=== PATIENT | male | born 1940 | race Two or more races ===

== ENCOUNTER 2021-05-03 17:26 | Inpatient (IN) | payer MEDICARE, OTHER ==
[~2021-05-03] VITALS: Ht 182.9 cm; Wt 72.6 kg
[2021-05-03 19:15] VITALS: BP 118/70
[2021-05-03 20:00] VITALS: BP 154/78
[2021-05-03 20:17] VITALS: BP 154/78
[2021-05-03] MEDS ORDERED: BLOOD SUGAR DIAGNOSTIC 1 EACH STRIP IN ONE (20:30)
[2021-05-03] MEDS ORDERED: LORAZEPAM 0.5 MG TABLET PO PRN (20:30)
[2021-05-03] MEDS ORDERED: MAG HYDROX/AL HYDROX/SIMETH 30 ML UDC PO PRN (20:30)
--- NOTE | 2021-05-03 20:45 | NUR ---
RN NOTE PATIENT'S SON ESME WAS AT BED SIDE UPON ADMISSION & IS AWARE ABOUT PATIENT'S ADMISSION AT GPS UNIT.
[2021-05-03] MEDS ORDERED: PREG50CA PO (21:09)
[2021-05-03] MEDS ORDERED: FAMO20TA8 MT (21:09)
[2021-05-03] MEDS ORDERED: ICOS1CAP PO (21:09)
[2021-05-03] MEDS ORDERED: CALC60CR4 TP (21:09)
[2021-05-03] MEDS ORDERED: POLY17PO4 PO ×2 (21:09)
[2021-05-03] MEDS ORDERED: OXYC5TAB3 MT (21:09)
[2021-05-03] MEDS ORDERED: ESOM20CA PO (21:09)
[2021-05-03] MEDS ORDERED: TRAZ150T75 MT (21:09)
[2021-05-03] MEDS ORDERED: METH4TAB16 MT (21:18)
[2021-05-03] MEDS: TEMAZEPAM 7.5 MG CAPSULE PO PRN (22:43)
--- NOTE | 2021-05-03 22:48 | NUR ---
RN NOTE: INSOMNIA PATIENT VERBALIZED SLEEPLESSNESS & REQUESTED TO TAKE SLEEPING MEDICINE. PRN RESTORIL 7.5 MG 1 CAP PO ADMINISTERED. WILL CONTINUE TO MONITOR.
--- NOTE | 2021-05-04 00:20 | NUR ---
GPS BEARING RING ASSEMBLER NOTE RECEIVED 80Y/O MALE PATIENT FROM [facility]. PATIENT ADMITTED ON A 5150 HOLD FOR DTS/DTO. PER 5150 HOLD, PATIENT HIT HIS WHEN SHE ATTEMPTED TO GIVE HIM HIS MEDICATION. PATIENT TOOK 20 PILLS OF OXYCODONE LAST NIGHT AND HAS BEEN MAKING SUICIDAL COMMENTS," I AM NOT HAPPY, I DON'T WANT TO LIVE." PATIENT IS A DANGER TO HIMSELF & OTHERS. UPON FACE TO FACE ASSESSMENT, PATIENT IS A & O X 2-3, FORGETFUL, DEPRESSED, FLAT AFFECT, COOPERATIVE, DENIES SI/HI AT THIS TIME, REDIRECTABLE. NO S/S OF PAIN. NO S/S OF APPARENT DISTRESS NOTED. AMBULATORY, UNSTEADY AT TIMES. PT EVAL ORDERED. CONTINENT. PATIENT REFUSED TO SIGNS ANY PAPER WORK DUE TO CURRENT MENTAL STATUS. PATIENT ADVISED OF HIS HOLD AND RIGHTS BOOKLET GIVEN. PATIENT IS UNDER THE PSYCHIATRIC CARE OF DR. OCAMPO AND THE MEDICAL CARE OF DR. ROMERO. PATIENT BELONGINGS WERE INVENTORIED AND CHECKED FOR CONTRABAND BY AM SHIFT. SKIN ASSESSMENT DONE. PATIENT ORIENTATED TO ROOM, FLOOR, AND STAFF. PATIENT BED SIDE RAILS ARE UP X 2 FOR SAFETY. PATIENT REFUSED COVID 19 VACCINE. BED IS LOW/LOCKED. BED ALARM IS ON. I WILL CONTINUE TO MONITOR THIS PATIENT Q 15 MIN & PRN WITH THE HELP OF STAFF TO MAINTAIN SAFETY.
--- NOTE | 2021-05-04 01:49 | NUR ---
RN NOTE PATIENT SEEN BY DR. ROMERO ON GPS FLOOR & PER MD, PATIENT'S MEDICATIONS WILL BE RECONCILED.
[2021-05-04] MEDS ORDERED: DEXTROSE 50%-WATER 50 ML DISP.SYRIN IV PRN (02:30)
[2021-05-04] MEDS ORDERED: POLYETHYLENE GLYCOL 3350 17 GM POWD.PACK PO PRN (02:30)
[2021-05-04] MEDS ORDERED: *INSULIN REGULAR(HUMULIN R)HUM 100 UNIT/ML VIAL SQ PRN (02:30)
[2021-05-04] MEDS ORDERED: ACETAMINOPHEN 325 MG TABLET PO PRN (02:30)
--- NOTE | 2021-05-04 03:30 | NUR ---
RN NOTE PATIENT SEEN BY DR. ROMERO & MED RECON DONE. Addendum: 05/04/21 at 0408 by ZULEIMA DALTON RN NOTIFIED DR. ROMERO ABOUT PATIENT'S BACK SURGERY RECENTLY & DRESSING ON THE BACK. PATIENT REFUSED TO REMOVE BACK DRESSING. PER DR. ROMERO, ORDER WOUND CARE CONSULT. ORDER NOTED & CARRIED OUT.
--- NOTE | 2021-05-04 06:55 | NUR ---
RN NOTE PATIENT SLEPT WELL AT NIGHT. MRSA SPECIMEN COLLECTED & SENT TO LAB. NO ACUTE CHANGES NOTED. PATIENT IS CALM, COOPERATIVE & RELAXED AT THIS TIME. WILL ENDORSE TO AM RN FOR CONTINUITY OF CARE.
[2021-05-04 07:21] LABS: BASOPHILS % (AUTO) 0.3 % (0.0-2.0); EOSINOPHILS % (AUTO) 1.4 % (0.0-6.0); HEMATOCRIT 37 % (39-51); HEMOGLOBIN 12.6 g/dL (13.5-17.5); LYMPHOCYTES # (AUTO) 2.2 K/uL (0.8-4.8); LYMPHOCYTES % (AUTO) 22.5 % (20.0-44.0); MEAN CORPUSCULAR HGB CONC 34 g/dl (31.0-36.0); MEAN CORPUSCULAR VOLUME 85 fL (80-96); MONOCYTES # (AUTO) 1.2 K/uL (0.1-1.30); MONOCYTES % (AUTO) 11.9 % (2.0-12.0); NEUTROPHILS # (AUTO) 6.3 K/uL (1.8-8.9); NEUTROPHILS % (AUTO) 63.9 % (43.0-81.0); PLATELET COUNT (AUTO) 349 K/uL (150-450); RED BLOOD CELL COUNT(AUTO) 4.34 MIL/uL (4.5-6.0); WHITE BLOOD COUNT (AUTO) 9.8 K/uL (4.3-11.0)
[2021-05-04] MEDS: BLOOD SUGAR DIAGNOSTIC 1 EACH STRIP VI SCH ×4 (07:30→21:17)
[2021-05-04 08:00] VITALS: BP 152/94
[2021-05-04 08:11] LABS: CHOLESTEROL 262 mg/dL (<200); HDL CHOLESTEROL 51 mg/dL (40-60); LDL 179 mg/dL (0-99); TRIGLYCERIDES 198 mg/dL (30-150)
[2021-05-04 08:17] LABS: BILIRUBIN,TOTAL 0.7 mg/dL (0.2-1.0); CALCIUM, SERUM 8.9 mg/dL (8.5-10.1); CREATININE 0.7 mg/dL (0.6-1.3); POTASSIUM 3.9 mmol/L (3.5-5.1); TOTAL PROTEIN, SERUM 6.9 g/dL (6.4-8.2)
[2021-05-04] MEDS: PREGABALIN 25 MG CAPSULE PO SCH ×3 (08:25→16:42)
[2021-05-04] MEDS: FAMOTIDINE (20 MG) 20 MG TABLET PO SCH ×2 (08:25→16:42)
[2021-05-04 16:00] VITALS: BP 131/72
[2021-05-04 20:08] VITALS: BP 143/80
--- NOTE | 2021-05-04 21:00 | NUR ---
GPS-RN NOTES: PATIENT REFUSED ACCU CHECK FOR TONIGHT. PATIENT STATED "I AM NOT DIABETIC" WILL CONTINUE TO MONITOR.
[2021-05-04] MEDS: ESCITALOPRAM OXALATE (10 MG) 10 MG TABLET PO SCH (21:16)
[2021-05-04] MEDS: TEMAZEPAM 7.5 MG CAPSULE PO PRN (23:10)
--- NOTE | 2021-05-04 23:10 | NUR ---
GPS-RN NOTES: INSOMNIA PATIENT C/O INABILITY TO SLEEP. PRN RESTORIL 7.5MG PO GIVEN ORDERED. WILL CONTINUE TO MONITOR.
[2021-05-05] MEDS: ACETAMINOPHEN 325 MG TABLET PO PRN ×2 (00:45→08:34)
--- NOTE | 2021-05-05 00:45 | NUR ---
GPS-RN NOTES: LOWER BACK PAIN PATIENT C/O LOWER BACK PAIN 11/20. PRN TYLENOL 650MG PO GIVEN ORDERED PER PT'S REQUEST. WILL CONTINUE TO REASSESS.
[2021-05-05] MEDS: BLOOD SUGAR DIAGNOSTIC 1 EACH STRIP VI SCH ×4 (07:43→22:00)
[2021-05-05] MEDS: INSULIN REGULAR, HUMAN 100 UNIT/ML 3 ML VIAL SQ PRN (07:48)
[2021-05-05 08:00] VITALS: BP 145/60
[2021-05-05] MEDS: PREGABALIN 25 MG CAPSULE PO SCH ×3 (08:34→16:21)
[2021-05-05] MEDS: FAMOTIDINE (20 MG) 20 MG TABLET PO SCH ×2 (08:34→16:21)
--- NOTE | 2021-05-05 08:34 | NUR ---
GPS-RN NOTES: LOWER BACK PAIN PATIENT C/O LOWER BACK PAIN 11/20. PRN TYLENOL 650MG PO GIVEN ORDERED PER PT'S REQUEST. WILL CONTINUE TO REASSESS.
--- NOTE | 2021-05-05 14:30 | NUR ---
D/C Plan: SW received call from pt.'s son, Arturo [phone] stating that he would liek to pt. to be discharged to [facility] [[address] [place] [address]; ] when pt. is ready for D/C. SW will continue to collaborate with psychiatrist to ensure safe & proper D/C planning.
--- NOTE | 2021-05-05 14:35 | NUR ---
Point of Contact: The pt.'s son, Arturo Yusuf [phone] is the pt.'s responsible green party and ill be involved in pt.'s care. VICTOR HUGO spoke to Arturo over the phone to gather collateral information.
[2021-05-05 20:00] VITALS: BP 140/53
[2021-05-05] MEDS: ESCITALOPRAM OXALATE (10 MG) 10 MG TABLET PO SCH (21:27)
--- NOTE | 2021-05-05 22:35 | NUR ---
GPS-RN NOTES: PATIENT REFUSED ACCU CHECK FOR TONIGHT. DESPITE OF EXPLANATION THE RISKS AND BENEFITS. PATIENT CONTINUED TO REFUSE. WILL CONTINUE TO MONITOR.
--- NOTE | 2021-05-06 07:21 | NUR ---
GPS-RN NOTES: PATIENT BLOOD SUGAR WAS 134MG/DL. PATIENT REFUSED REGULAR INSULIN 2 UNITS COVERAGE. DESPITE OF EXPLANATION THE RISKS AND BENEFITS. PATIENT CONTINUED TO REFUSE AND PT. STATED "MY BLOOD SUGAR IS NORMAL I DON'T NEED INSULIN". WILL CONTINUE TO MONITOR.
[2021-05-06] MEDS: BLOOD SUGAR DIAGNOSTIC 1 EACH STRIP VI SCH ×4 (07:35→21:54)
[2021-05-06 08:00] VITALS: BP 118/62
[2021-05-06] MEDS: PREGABALIN 25 MG CAPSULE PO SCH ×3 (08:02→16:01)
[2021-05-06] MEDS: FAMOTIDINE (20 MG) 20 MG TABLET PO SCH ×2 (08:02→16:01)
--- NOTE | 2021-05-06 09:40 | NUR ---
SNF Referral: VICTOR HUGO faxed clinicals to [facility], [place] FAX: [phone] tel: [phone]
--- NOTE | 2021-05-06 11:00 | NUR ---
RN NOTE: UA SENT TO LAB
--- NOTE | 2021-05-06 11:22 | NUR ---
WOUND CARE CONSULT: PT SEEN FOR "BACK BLISTER/LAMINECTOMY SITE". PT NOTED TO HAVE SURGICAL DRESSING TO LOWER BACK WHICH IS DRY AND INTACT WITH SOME AREAS OF SKIN DISCOLORATION AND RAISED LESIONS IN CLUSTERS TO RT BUTTOCK, PRESENT ON ADMISSION. DEFER TO PMD FOR LESIONS. NO DRAINAGE NOTED. RECOMMEND SURGICAL FOLLOW UP FOR SURGICAL SITE. PT IS AMBULATORY AND CONTINENT WITH CURRENT LUKAS SCORE OF 19. Addendum: 05/06/21 at 1124 by CAROL CORREIA WNDNU Amended: Links added.
[2021-05-06 12:48] LABS: BILIRUBIN,URINE NEGATIVE (NEGATIVE); COLOR,URINE DARK YELLOW (YELLOW); LEUKOCYTE ESTERASE ,URINE NEGATIVE (NEGATIVE); NITRITE, URINE NEGATIVE (NEGATIVE); PROTEIN,URINE NEGATIVE (NEGATIVE); UGLUCOSE NEGATIVE (NEGATIVE); UROBILINOGEN,URINE 0.2 EU/dL (0.2)
--- NOTE | 2021-05-06 15:50 | NUR ---
[facility] Follow up : VICTOR HUGO received call from CM at [facility] FAX: [phone] tel: [phone] requesting dditional progress notes from MD and from PT. VICTOR HUGO faxed stated notes. Per CM, they will require rapid test completed within last 14 hours prior to D/C. NOTED.
[2021-05-06 16:00] VITALS: BP 123/69
[2021-05-06 20:00] VITALS: BP 127/70
[2021-05-06 20:37] VITALS: BP 122/70
[2021-05-06] MEDS: ESCITALOPRAM OXALATE (10 MG) 10 MG TABLET PO SCH (21:06)
[2021-05-06] MEDS: TEMAZEPAM 7.5 MG CAPSULE PO PRN (21:53)
--- NOTE | 2021-05-06 21:53 | NUR ---
GPS-RN NOTES: INSOMNIA PATIENT C/O INABILITY TO SLEEP. PRN RESTORIL 7.5MG PO GIVEN ORDERED. WILL CONTINUE TO MONITOR.
--- NOTE | 2021-05-06 21:54 | NUR ---
RN NOTE PATIENT'S BLOOD SUGAR LEVEL IS 109 MG/DL, NO SSI COVERAGE NEEDED AT THIS TIME.
[2021-05-07] MEDS: BLOOD SUGAR DIAGNOSTIC 1 EACH STRIP VI SCH ×4 (07:52→22:00)
--- NOTE | 2021-05-07 07:52 | NUR ---
RN NOTE: INSULIN REFUSAL PT 0730 BLOOD SUGAR 140. PT REFUSED INSULIN COVERAGE. NO S/SX OF HYPERGLYCEMIA NOTED. EDUCATED PT RE IMPORTANCE OF STABLE BLOOD SUGAR. PT CONT'D TO REFUSE X 3.
[2021-05-07 08:00] VITALS: BP 137/70
[2021-05-07] MEDS: FAMOTIDINE (20 MG) 20 MG TABLET PO SCH ×2 (08:23→16:21)
[2021-05-07] MEDS: PREGABALIN 25 MG CAPSULE PO SCH ×3 (08:23→16:21)
--- NOTE | 2021-05-07 09:30 | NUR ---
RN NOTE: PAIN PT C/O PAIN AFTER LYRICA ADMINISTRATION. MEDICATED WITH TYLENOL PO PRN.
[2021-05-07] MEDS: ACETAMINOPHEN 325 MG TABLET PO PRN ×2 (09:34→15:49)
--- NOTE | 2021-05-07 09:43 | NUR ---
SS Note: SW notified by [facility] FAX: [phone] tel: [phone] admission's departemtn that they cannot accept this pt. s they feel the pt. is not appropriate for their facility. SW will work with family and refer pt. for alternative placement.
--- NOTE | 2021-05-07 10:15 | NUR ---
D/C Planning w/ Family: VICTOR HUGO called & informed The pt.'s son, Arturo Yusuf [phone] that after reviewing the Physical Therapy notes [facility] notified this SW that the pt. does not have any skilled needs and they cannot accept this pt. Arturo disagreed and stated, "I think your physical therapist does not know what he is doing" and requested for PT re-evaluation to be completed when Arturo is present. VICTOR HUGO called Physical Therapist's office and notified Les of possible re-evaluation. Les expressed understanding. VICTOR HUGO discussed SNF placement for lower level of care and Arturo hesitantly agreed. VICTOR HUGO will refer pt. for appropriate placement and continue to collaborate with psychiatrist for D/C Planning.
--- NOTE | 2021-05-07 10:37 | NUR ---
SNF Referral : VICTOR HUGO faxed clinicals to [facility] TEL: [phone] FAX: [phone]
--- NOTE | 2021-05-07 11:30 | NUR ---
RN NOTE: CONSTIPATION PT C/O CONSTIPATION MEDICATED WITH MILK OF MAGNESIA PO PRN.
[2021-05-07] MEDS: MAGNESIUM HYDROXIDE 30 ML UDC PO PRN (11:34)
--- NOTE | 2021-05-07 15:53 | NUR ---
RN NOTE: PAIN PT C/O 12/21 BACK PAIN. MEDICATED WITH TYLENOL 650MG PO PRN.
[2021-05-07 16:00] VITALS: BP 139/66
--- NOTE | 2021-05-07 17:54 | NUR ---
RN NOTE: CONSTIPATION PT C/O CONT'D CONSTIPATION. MIRALAX ADMINISTERED PO PRN.
[2021-05-07 20:02] VITALS: BP 140/98
[2021-05-07] MEDS: ESCITALOPRAM OXALATE (10 MG) 10 MG TABLET PO SCH (21:59)
[2021-05-07] MEDS: TEMAZEPAM 7.5 MG CAPSULE PO PRN (22:36)
--- NOTE | 2021-05-07 22:37 | NUR ---
GPS RN NOTES: RESTORIL 75MG GIVEN PO PER PATIENT REQUEST.
[2021-05-08] MEDS: ACETAMINOPHEN 325 MG TABLET PO PRN ×2 (01:34→15:43)
[2021-05-08] MEDS: BLOOD SUGAR DIAGNOSTIC 1 EACH STRIP VI SCH ×4 (07:39→22:47)
[2021-05-08 08:00] VITALS: BP 118/62
[2021-05-08] MEDS: PREGABALIN 25 MG CAPSULE PO SCH ×3 (08:25→16:41)
[2021-05-08] MEDS: FAMOTIDINE (20 MG) 20 MG TABLET PO SCH ×2 (08:25→16:41)
[2021-05-08] MEDS: MAGNESIUM HYDROXIDE 30 ML UDC PO PRN (09:53)
--- NOTE | 2021-05-08 13:05 | NUR ---
Probable cause hearing: Pt.'s 5250 hold was upheld on the grounds of [facility] Disabled & DTS.
[2021-05-08 16:00] VITALS: BP 143/74
--- NOTE | 2021-05-08 19:46 | NUR ---
RNOPENING NOTES: RECEIVED PATIENT AWAKE, PLACED IN BED COMFORTABLY, BED IN LOW POSITION, CALL LIGHTS WITHIN REACH, NO COMPLAIN OF PAIN AND DISCOMFORT AT THIS TIME, KPET CLEAN AND DRY, NO CHANGESIN BEHAVIOR OBSERVED, WILL CONTINUE TO MONITOR,.
[2021-05-08 20:39] VITALS: BP 117/75
[2021-05-08] MEDS: TRAZODONE 50 MG TABLET PO SCH (21:47)
[2021-05-08] MEDS: ESCITALOPRAM OXALATE (10 MG) 10 MG TABLET PO SCH (21:47)
--- NOTE | 2021-05-08 22:48 | NUR ---
RN NOTES: HS BS-112 NO INSULIN GIVEN
[2021-05-08] MEDS: TEMAZEPAM 7.5 MG CAPSULE PO PRN (23:09)
[2021-05-09] MEDS: ACETAMINOPHEN 325 MG TABLET PO PRN ×3 (02:05→17:59)
[2021-05-09] MEDS: BLOOD SUGAR DIAGNOSTIC 1 EACH STRIP VI SCH ×4 (06:49→21:54)
[2021-05-09] MEDS: INSULIN REGULAR, HUMAN 100 UNIT/ML 3 ML VIAL SQ PRN (06:56)
[2021-05-09 08:00] VITALS: BP 134/67
[2021-05-09] MEDS: PREGABALIN 25 MG CAPSULE PO SCH ×3 (08:43→16:07)
[2021-05-09] MEDS: FAMOTIDINE (20 MG) 20 MG TABLET PO SCH ×2 (08:44→16:07)
[2021-05-09 16:00] VITALS: BP 141/69
--- NOTE | 2021-05-09 17:13 | NUR ---
GPS/RN pt refused accucheck offered x3
[2021-05-09 20:48] VITALS: BP 132/79
[2021-05-09] MEDS: TRAZODONE 50 MG TABLET PO SCH (21:27)
[2021-05-09] MEDS: ESCITALOPRAM OXALATE (10 MG) 10 MG TABLET PO SCH (21:27)
--- NOTE | 2021-05-09 21:51 | NUR ---
RN NOTES: PT. REFUSED ACCU CHECK , ENCOURAGED X3 , RISK / BENFITS EXPLINED , PT. STILL REFUSED , PER PT. I AM OK AND MY BLOOD SUGAR IS FINE ,
--- NOTE | 2021-05-09 22:15 | NUR ---
RN NOTES: PT. REFUSED CURT , BRENTON X3 , RISK / BENFITS EXPLINED , PT. STILL REFUSED , WILL CONTINUTY WITH CARE. Addendum: 05/09/21 at 2332 by TOM HDEZ RN INCORRECT DOCUMENTIONS
[2021-05-09] MEDS: TEMAZEPAM 7.5 MG CAPSULE PO PRN (23:06)
--- NOTE | 2021-05-09 23:08 | NUR ---
INSOMNIA PATIENT C/O INABILITY TO SLEEP. PRN RESTORIL 7.5MG PO ORDERED PER PT'S REQUEST. WILL CONTINUE TO MONITOR.
[2021-05-10] MEDS: ACETAMINOPHEN 325 MG TABLET PO PRN ×2 (01:19→08:39)
[2021-05-10] MEDS: oxyCODONE IR immediate release 5 MG PO PRN ×3 (06:25→20:18)
[2021-05-10] MEDS: BLOOD SUGAR DIAGNOSTIC 1 EACH STRIP VI SCH ×4 (07:30→21:27)
[2021-05-10 08:00] VITALS: BP 154/67
[2021-05-10] MEDS: FAMOTIDINE (20 MG) 20 MG TABLET PO SCH ×2 (08:12→17:14)
[2021-05-10] MEDS: PREGABALIN 25 MG CAPSULE PO SCH ×3 (08:12→17:14)
[2021-05-10 16:00] VITALS: BP 155/89
[2021-05-10 20:00] VITALS: BP 117/76
[2021-05-10] MEDS: ESCITALOPRAM OXALATE (10 MG) 10 MG TABLET PO SCH (21:26)
[2021-05-10] MEDS: TRAZODONE 50 MG TABLET PO SCH (21:26)
--- NOTE | 2021-05-10 21:27 | NUR ---
RN NOTES: PT. REFUSED ACCU CHECK , ENCOURAGED X3 , RISK / BENFITS EXPLINED , PT. STILL REFUSED , PER PT. I AM NOT DIABETIC, MY BLOOD SUGAR IS FINE .
[2021-05-11] MEDS: oxyCODONE IR immediate release 5 MG PO PRN ×3 (02:25→16:33)
[2021-05-11] MEDS: BLOOD SUGAR DIAGNOSTIC 1 EACH STRIP VI SCH ×4 (07:30→21:34)
[2021-05-11 08:00] VITALS: BP 140/79
[2021-05-11] MEDS: FAMOTIDINE (20 MG) 20 MG TABLET PO SCH ×2 (08:07→16:32)
[2021-05-11] MEDS: PREGABALIN 25 MG CAPSULE PO SCH ×3 (08:08→16:32)
[2021-05-11] MEDS: ACETAMINOPHEN 325 MG TABLET PO PRN (12:05)
[2021-05-11 16:00] VITALS: BP 144/72
[2021-05-11 20:00] VITALS: BP 140/71
[2021-05-11] MEDS: ESCITALOPRAM OXALATE (10 MG) 10 MG TABLET PO SCH (21:34)
[2021-05-11] MEDS: TRAZODONE 50 MG TABLET PO SCH (21:34)
--- NOTE | 2021-05-11 21:36 | NUR ---
RN NOTES: PT. REFUSED ACCU CHECK , ENCOURAGED X3 , RISK / BENFITS EXPLINED , PT. STILL REFUSED , PER PT. I AM NOT DIABETIC, MY BLOOD SUGAR IS FINE . WILL CONTINUITY WITH CARE.
[2021-05-12] MEDS: BLOOD SUGAR DIAGNOSTIC 1 EACH STRIP VI SCH ×4 (07:11→21:26)
[2021-05-12 08:09] VITALS: BP 108/54
[2021-05-12] MEDS: FAMOTIDINE (20 MG) 20 MG TABLET PO SCH ×2 (08:21→16:12)
[2021-05-12] MEDS: PREGABALIN 25 MG CAPSULE PO SCH ×3 (08:21→16:12)
--- NOTE | 2021-05-12 09:00 | NUR ---
RN NOTE- PT REFUSED ACCU CHECK, MED COMPLIANT HOWEVER, NO CHANGES PT RESTING IN HIS BED, ORIENTED TO PERSON PLACE PURPOSE, AMBULATORY WITH WALKER ASSIST NO ACUTE DISTRESS NOTED. NO C/O PAIN REPORTED. SAFETY MEASURES IN PLACE. ALL NEEDS ATTENDED AND ANTICIPATED. WILL CONTINUE TO MONITOR Q 15 MIN FOR SAFETY, MOOD & BEHAVIOR.
--- NOTE | 2021-05-12 12:22 | NUR ---
D/C Planning: SW was notified by charge nurse, Alma that the pt.'s son, Arturo left business card and message stating thet he would like to pt. to be discharged to [facility] [[address] [facility] [address]; TEL: [phone]]. SW called facility to discuss referral SW left voicemail. VICTOR HUGO also called Admission Coordinator, Denita Holloway to and no voicemail option. VICTOR HUGO will follow up accordingly.
--- NOTE | 2021-05-12 14:07 | NUR ---
D/C Planning: VICTOR HUGO faxed clinicals to [facility] per sons request.
[2021-05-12] MEDS: oxyCODONE IR immediate release 5 MG PO PRN ×2 (14:25→20:39)
[2021-05-12 16:19] VITALS: BP 130/51
[2021-05-12 20:00] VITALS: BP 110/60
[2021-05-12] MEDS: TRAZODONE 50 MG TABLET PO SCH (21:23)
[2021-05-12] MEDS: TEMAZEPAM 7.5 MG CAPSULE PO PRN (21:24)
[2021-05-12] MEDS: ESCITALOPRAM OXALATE (10 MG) 10 MG TABLET PO SCH (21:25)
[2021-05-13] MEDS: ACETAMINOPHEN 325 MG TABLET PO PRN (00:36)
--- NOTE | 2021-05-13 04:44 | NUR ---
CLOSING NOTES: ALERT AND ORIENTATED AMBULATES WITH A STEADY GAIT IN THE [place] MEDICATED WITH OVY IR FOR C/O NECK PAIN AND EFFECTIVE. HE ASKED FOR A HEATING PAD AND EXPLAINED TO HIM WE DO NOT HAVE HEATING PADS AND THAT IN THIS UNIT THIS WOULD NOT E ALLOW. HIS VOICE WAS USED IN AN ANGER TONE AND HE LEANED IN TO MY FACE AND STATED, SO YOU CAN'T HELP ME". i WROTE ON A PIECE OF PAPER THE WORD " NO" AND HELD IT UP FOR HIM TO READ. HE ASKED ME THE SAME QUESTION 3 HOYRS LATER AND I GAVE HIM THE SAME ANSWER, HE SAID,' 'I'M NO HELP' OFFERED ATIVAN AND HE ACCEPTED. ATIVAN WAS EFFECTIVE HE CALMED DOWN GOT INTO BED A OFF TO SLEEP
[2021-05-13] MEDS: oxyCODONE IR immediate release 5 MG PO PRN ×2 (07:07→14:04)
[2021-05-13] MEDS: BLOOD SUGAR DIAGNOSTIC 1 EACH STRIP VI SCH ×4 (07:19→21:13)
[2021-05-13 08:00] VITALS: BP 113/56
[2021-05-13] MEDS: FAMOTIDINE (20 MG) 20 MG TABLET PO SCH ×2 (08:27→16:54)
[2021-05-13] MEDS: PREGABALIN 25 MG CAPSULE PO SCH ×3 (08:27→16:54)
--- NOTE | 2021-05-13 09:00 | NUR ---
RN NOTE- PT IS ORIENTED TO PERSON PLACE PURPOSE, AMBULATORY WITH WALKER ASSIST NO ACUTE DISTRESS NOTED. NO C/O PAIN REPORTED. SAFETY MEASURES IN PLACE. ALL NEEDS ATTENDED AND ANTICIPATED. WILL CONTINUE TO MONITOR Q 15 MIN FOR SAFETY, MOOD & BEHAVIOR.
--- NOTE | 2021-05-13 11:28 | NUR ---
D/C Planning: Pt has been accepted to [facility] ([address], [place] [address]; ). Pt's son, Arturo Yusuf, , is agreeable with this D/C plan and confirmed that he is willing to provide transportation for the pt at the time of D/C to the facility, or ambulance will be arranged. SS will continue to F/U with this D/C plan.
--- NOTE | 2021-05-13 11:50 | NUR ---
D/C Planning: SW spoke to pt's son, Arturo Yusuf, , who requested for the pt to be transported via ambulance to [facility] ([address] [place] [id number]; [phone]).
[2021-05-13 16:00] VITALS: BP 133/65
[2021-05-13] MEDS: ESCITALOPRAM OXALATE (10 MG) 10 MG TABLET PO SCH (21:11)
[2021-05-13] MEDS: TRAZODONE 50 MG TABLET PO SCH (21:12)
[2021-05-13] MEDS: TEMAZEPAM 7.5 MG CAPSULE PO PRN (21:13)
[2021-05-14] MEDS: oxyCODONE IR immediate release 5 MG PO PRN ×3 (00:01→18:37)
[2021-05-14 01:01] VITALS: BP 121/79
--- NOTE | 2021-05-14 04:37 | NUR ---
CLOSING NOTES PATIENT IS ALERT AND ORIENTED X 3. SPEAKS OF GOING TO ANOTHER FACILITY TODAY. VISITED BY SON LAST NIGHT. COVID 19 TEST DONE (PCR ). MEDICATED X2 FOR NECK PAIN AND EFFECTIVE. PATIENT USES A WALKER.
[2021-05-14] MEDS: BLOOD SUGAR DIAGNOSTIC 1 EACH STRIP VI SCH ×4 (07:40→21:33)
[2021-05-14] MEDS: INSULIN REGULAR, HUMAN 100 UNIT/ML 3 ML VIAL SQ PRN ×2 (07:42→17:24)
[2021-05-14 08:00] VITALS: BP 140/65
[2021-05-14] MEDS: FAMOTIDINE (20 MG) 20 MG TABLET PO SCH ×2 (08:21→16:36)
[2021-05-14] MEDS: PREGABALIN 25 MG CAPSULE PO SCH ×3 (08:21→16:36)
--- NOTE | 2021-05-14 11:30 | NUR ---
RN-CO: DR GRUBBS , COVERING FOR DR OCAMPO GAVE AN ORDER TO DISCONTINUE HOLD AND DISCHARGE PATIENT TO [facility], NOTED.
[2021-05-14 16:00] VITALS: BP 148/78
[2021-05-14 21:15] VITALS: BP 118/64
[2021-05-14] MEDS: TRAZODONE 50 MG TABLET PO SCH (21:33)
[2021-05-14] MEDS: ESCITALOPRAM OXALATE (10 MG) 10 MG TABLET PO SCH (21:33)
--- NOTE | 2021-05-14 22:00 | NUR ---
GPS/CLINICAL SOCIAL WORK AIDE NOTES: PT. WAS DISCHARGED TO [facility] ([facility]) LOCATED AT [address] [place] [address]; [phone]. PT. WAS TRANSPORTED VIA AMBULANCE ([facility]) AT 2200. PT. SUZE PRASAD, , WAS NOTIFIED. UPON DISCHARGED, THE PT. APPEARED TO BE IN A EUTHYMIC MOOD AND PRESENTED WITH A CALM AFFECT. PT. DENIED BOTH SUICIDAL AND HOMICIDAL IDEATION WELL AUDITORY AND VISUAL HALLUCINATIONS. PT. WILL BE UNDER THE CARE OF A PSYCHIATRIST, DR. MATT AND VICE PRESIDENT NETWORK DEVELOPMENT, DR. SALCIDO LOCATED AT THE FACILITY. BELONGINGS SENT HOME WITH PT. ON DISCHARGED.
--- NOTE | 2021-05-15 09:30 | NUR ---
Discharge Note: Pt was discharged to [facility] ([facility]) located at [address] [place] [id number]; . Pt was transported via ambulance ([facility]) around 2200. Pts son, Arturo Yuusf, , was notified. Upon discharge, the pt appeared to be in a euthymic mood and presented with a calm affect. Pt denied both suicidal and homicidal ideation as well as auditory and visual hallucinations. Pt will be under the care of a psychiatrist, Dr. Vences and collection systems modeler, Dr. Prajapati located at the facility.
== END 2021-05-14 22:00 | DRG 881 ==
LOC: GPS 17:26
PROVIDERS: ADMIT Psychiatry & Neurology Psychiatry; ATTEND Student in an Organized Health Care Education/Training Program
DX: F32.9 Major depressive disorder, single episode, unspecified (principal); R45.851 Suicidal ideations; K21.9 Gastro-esophageal reflux disease without esophagitis; E04.9 Nontoxic goiter, unspecified; E11.9 Type 2 diabetes mellitus without complications; E61.1 Iron deficiency; G47.00 Insomnia, unspecified; H40.9 Unspecified glaucoma; L40.9 Psoriasis, unspecified; Z20.822 Contact with and (suspected) exposure to COVID-19; Z87.891 Personal history of nicotine dependence; M47.20 Other spondylosis with radiculopathy, site unspecified; I08.0 Rheumatic disorders of both mitral and aortic valves; H66.90 Otitis media, unspecified, unspecified ear; F25.0 Schizoaffective disorder, bipolar type; D29.1 Benign neoplasm of prostate
CPT/HCPCS: 36415; 80053-TC; 80061-TC; 82962-TC; 84443-TC; 85025-TC; 87081-TC; 97116-TC; 97530-TC; J1815; U0003